=== PATIENT | male | born 1985 | race African-American/Black ===

== ENCOUNTER 2018-12-09 09:41 | Emergency (ER) | payer OTHER ==
[2018-12-09 10:00] VITALS: BP 153/80; PULSE 89; TEMP 98.5; BMI 41.1
[2018-12-09] MEDS ORDERED: COLCHICINE 0.6 MG CAP PO ONE (11:20)
--- NOTE | 2018-12-09 11:26 | PDOC ---
History of Present Illness - General Chief Complaint: Pain, Acute Stated Complaint: R FOOT SWOLLEN Time Seen by Provider: 12/09/18 10:42 History Source: Patient Exam Limitations: Clinical Condition - History of Present Illness Initial Comments: 12/09/18 11:26 Patient with history of eczema on triamcinolone present with complaint of three- day history of worsening pain and swelling to right great toe and right foot. Patient denies any trauma or injury to foot. Patient denies history of gout arthritis. Denies fever, chills, numbness or tingling sensation. Denies any other symptoms Is this a multiple visit Asthma Patient?: No Timing/Duration: other (3 days) Past History - Past Medical History Allergies/Adverse Reactions: Allergies Allergy/AdvReac Type Severity Reaction Status Date / Time peanut Allergy Swelling Verified 12/09/18 09:55 Home Medications: Ambulatory Orders Colchicine [Colcrys] 0.6 mg PO DAILY #7 tablet 12/09/18 Multivitamin [Multiple Vitamins] 1 each PO DAILY 12/09/18 Triamcinolone 0.1% Ointment [Aristocort 0.1% Ointment -] 1 applic TP BID #1 tube 12/09/18 Hypercholesterolemia: Yes - Suicide/Smoking/Psychosocial Hx Smoking Status: Yes Smoking History: Never smoked Number of Cigarettes Smoked Daily: 4 Cigars Per Day: 0 Hx Alcohol Use: Yes Substance Use Type: None Review of Systems - Review of Systems Able to Perform ROS?: Yes Is the patient limited Citizen Of [place] proficient: No Constitutional: No: Chills, Fever HEENTM: No: Symptoms Reported Respiratory: No: Symptoms reported Cardiac (ROS): No: Symptoms Reported ABD/GI: No: Symptoms Reported Musculoskeletal: Yes: Symptoms Reported, See HPI, Joint Pain (right great toe), Joint Swelling (right great toe), Muscle Pain (right foot pain) Integumentary: Yes: Symptoms Reported, See HPI, Erythema (mild redness to right great toe) Neurological: No: Symptoms reported, Weakness All Other Systems: Reviewed and Negative *Physical Exam - Vital Signs Last Vital Signs Temp Pulse Resp BP Pulse Ox 98.5 F 89 20 153/80 99 12/09/18 09:59 12/09/18 09:59 12/09/18 09:59 12/09/18 09:59 12/09/18 09:59 - Physical Exam Comments: 12/09/18 11:24 GENERAL: Well developed, well nourished. Awake and alert in mild acute distress. PULMONARY: No evidence of respiratory distress. MUSCULOSKELETAL : Moderate tenderness to MCP of right great toe with mild swelling to right home with. No increased erythema or warmth to right foot or toe. No bony deformities EXTREMITIES: Mild swelling to right great toe and whole foot. No cyanosis. No clubbing. No calf tenderness. SKIN: Warm and dry. Normal capillary refill. Diffuse eczema rash to whole bilateral lower extremities. No jaundice. NEUROLOGICAL: Alert, awake, appropriate. No motor deficits in the lower extremities. Gait is normal without ataxia. PSYCHIATRIC: Cooperative. Good eye contact. Appropriate mood and affect. General Appearance: Yes: Nourished, Appropriately Dressed, Apparent Distress, Mild Distress ED Treatment Course - LABORATORY CBC & Chemistry Diagram: 12/09/18 11:40 - RADIOLOGY Radiology Studies Ordered: Category Date Time Status FOOT-RIGHT [RAD] Stat Radiology 12/09/18 11:14 Ordered TOE(S) RIGHT [RAD] Stat Radiology 12/09/18 11:14 Ordered Medical Decision Making - Medical Decision Making 12/09/18 11:27 Patient with history of eczema on triamcinolone present with complaint of three- day history of worsening pain and swelling to right great toe and right foot. Patient denies any trauma or injury to foot. Patient denies history of gout arthritis. Denies fever, chills, numbness or tingling sensation. Denies any other symptoms Clinical exam significant for moderate tenderness to MCP of right great toe with mild swelling to right great toe and will hold right foot without visible deformity. No increased warmth or erythema to toe or foot. Symptoms likely gout arthritis versus foot strain versus less likely cellulitis. CBC, uric acid level, CRP and ESR lab ordered. X-ray of right foot and great toe ordered. Colchicine 1.2 mg by mouth given for possible gout 12/09/18 12:18 CBC within normal limits. Uric acid within normal limits. ESR and CRP elevated just an indication of inflammatory effect. X-ray of right foot and toes shows no acute pathology. Patient is stable for discharge on daily dose of colchicine for inflammatory effect with podiatry follow-up as needed. Patient advised on decrease red meat intake and decreased according take with advised to increase fluid intake. Patient voiced understanding of management and agrees to follow- up if symptoms persist. Patient stable for discharge 12/09/18 12:34 Patient requests refill of his triamcinolone topical medication for eczema. Rx sent for patient *DC/Admit/Observation/Transfer Diagnosis at time of Disposition: Right foot pain, Acute eczema - Discharge Dispostion Disposition: HOME Condition at time of disposition: Stable Decision to Admit order: No - Prescriptions Prescriptions: Colchicine [Colcrys] 0.6 mg PO DAILY #7 tablet Triamcinolone 0.1% Ointment [Aristocort 0.1% Ointment -] 1 applic TP BID #1 tube - Referrals Referrals: Reji Miner MD [Staff Physician] - - Patient Instructions Printed Discharge Instructions: DI for Gout Additional Instructions: Take medications as prescribed. Decrease alcohol and red meat intake. Increase fluid intake. Soak right foot in Epsom salts water as discussed to help with swelling. Follow-up referred podiatry if symptoms persist for more than 4 days - Post Discharge Activity Forms/Work/School Notes: Back to Work
[2018-12-09 11:51] LABS: BASO % 0.7 % (0-2.0); EOS % 4.8 % (0-4.5); HEMATOCRIT 44.1 % (35.4-49); LYMPH % 21.6 % (8-40); MCH 27.5 pg (25.7-33.7); MCHC 31.7 g/dl (32.0-35.9); MEAN CELL VOLUME 86.7 fl (80-96); MEAN PLT VOLUME 11.4 fl (7.5-11.1); MONO % 11.1 % (3.8-10.2); NEUT % 61.8 % (42.8-82.8); PLATELET COUNT 190 K/MM3 (134-434); RBC 5.09 M/mm3 (4.00-5.60); RDW 14.4 % (11.9-15.9); WHITE BLOOD COUNT 6.8 K/mm3 (4.0-10.0)
[2018-12-09 12:10] LABS: URIC ACID 6.9 mg/dL (2.6-7.2)
[2018-12-09 12:49] LABS: ERYTHROCYTE SEDIMENTATION RATE 7 mm/hr (0-10)
== END 2018-12-09 12:32 | disposition home or self-care (01) ==
LOC: JERFT 09:41
DX: M10.9 Gout, unspecified (principal); R70.0 Elevated erythrocyte sedimentation rate; R79.82 Elevated C-reactive protein (CRP); L30.9 Dermatitis, unspecified
CPT/HCPCS: 36415; 73630-TC-RT-FY; 73660-TC-FY; 84550; 85025; 85651; 86140; 99281-25

== ENCOUNTER 2021-04-01 00:25 | Emergency (ER) | payer BC, OTHER ==
[2021-04-01 00:53] VITALS: BP 145/86; PULSE 79; TEMP 97; BMI 40.4
[2021-04-01] MEDS ORDERED: LIDOCAINE 5% TOPICAL PATCH TP ONE (01:13)
[2021-04-01] MEDS ORDERED: KETOROLAC TROMETHAMINE 30 MG/1 ML VIAL IM ONE (01:13)
[2021-04-01] MEDS ORDERED: LIDOCAINE 5% TOPICAL PATCH ONE (01:16)
[2021-04-01] MEDS ORDERED: KETOROLAC TROMETHAMINE 30 MG/1 ML VIAL ONE (01:16)
== END 2021-04-01 01:42 | disposition home or self-care (01) ==
LOC: JER 00:25
PROC: 3E0233Z Introduction of Anti-inflammatory into Muscle, Percutaneous Approach (ICD-10-PCS; principal; 2021-04-01)
DX: M54.6 Pain in thoracic spine (principal)
CPT/HCPCS: 99284-25